=== PATIENT | female | born 1990 | race African-American/Black ===

== ENCOUNTER 2016-06-12 17:29 | Emergency (ER) | payer OTHER ==
[~2016-06-12] VITALS: Ht 152.4 cm; Wt 54.5 kg
[2016-06-12 17:35] VITALS: TEMP 99.8
[2016-06-12 18:40] LABS: BASO % 0.2 % (0.0-2.0); GRAN # 11.1 (1.4-6.5); GRAN % 85.4 % (42.2-75.2); HEMATOCRIT 38.2 % (37.0-47.0); LYMPH # 0.7 (1.2-3.4); MEAN CELL VOLUME 74 fl (80.0-100.0); MEAN CORPUSCULAR HEMOGLOBIN 23 pg (27.0-31.0); MEAN CORPUSCULAR HGB CONC 31 g/dl (33.0-37.0); MEAN PLATELET VOLUME 10.4 fl (7.4-10.4); MONO # 1.2 (0.1-0.6); MONO % 9.1 % (1.7-9.3); PLATELET COUNT 330 K/mm3 (130-400); RED BLOOD COUNT 5.17 M/mm3 (4.10-5.30); REDCELL DISTRIBUTION WIDTH-CV 14.3 % (11.5-14.5)
[2016-06-12 18:47] LABS: HEMOGLOBIN 11.8 g/dl (12.5-16.0)
[2016-06-12 18:49] LABS: ADJUSTED CALCIUM 9.2 mg/dL (8.4-10.2); ALBUMIN 4.2 gm/dL (3.5-5.0); BILIRUBIN,TOTAL 0.9 mg/dL (0.0-1.0); C-REACTIVE PROTEIN 0.6 mg/dL (0.0-0.9); CALCIUM 9.4 mg/dL (8.4-10.2); CREATININE, serum 0.85 mg/dL (0.52-1.25); TOTAL PROTEIN 7.2 gm/dL (6.4-8.2)
[2016-06-12] MEDS ORDERED: ZOFRAN ODT4 MG PO (21:39)
[2016-06-12 22:04] VITALS: BP 122/95; PULSE 96
== END 2016-06-12 22:08 | disposition home or self-care (01) ==
LOC: COL.ER 17:29
PROVIDERS: Nurse Practitioner
DX: R11.2 Nausea with vomiting, unspecified (principal); R19.7 Diarrhea, unspecified; R10.84 Generalized abdominal pain
CPT/HCPCS: J2405; J2550; J7030

== ENCOUNTER → 2018-06-06 | Outpatient (CLI) | payer OTHER ==
[~2018-06-06] MED LIST: ZOFRAN ODT4 MG PO
== END ==
LOC: MHCPAIN 13:28
DX: G89.29 Other chronic pain (principal); M47.817 Spondylosis without myelopathy or radiculopathy, lumbosacral region; M53.3 Sacrococcygeal disorders, not elsewhere classified
CPT/HCPCS: G0463